=== PATIENT | male | born 1950 | race Caucasian/White ===

== ENCOUNTER → 2020-01-17 | Outpatient (CLI) | payer MEDICARE ==
[~2020-01-17] MED LIST: AMMO225L14 TP; ASPI-728 PO; ATOR40TA28 PO; DSS100 PO; HUM10VIA SQ; INSU100V SQ; LISI-662 PO; METF-960 PO; NICO1PAT49 TD; VALS80TA2 PO
== END | disposition home or self-care (01) ==
LOC: RADPV 07:30
PROVIDERS: ATTEND Internal Medicine
DX: M65.812 Other synovitis and tenosynovitis, left shoulder (principal); M25.512 Pain in left shoulder
CPT/HCPCS: 73030-TC

== ENCOUNTER → 2020-06-05 | Outpatient (CLI) | payer MEDICARE ==
[~2020-06-05] MED LIST changes: +ASPI-1450 PO; -ASPI-728 PO; -LISI-662 PO; +LISI-894 PO
== END | disposition home or self-care (01) ==
LOC: RADMN 12:30
PROVIDERS: ATTEND Internal Medicine
DX: M19.012 Primary osteoarthritis, left shoulder (principal); M75.82 Other shoulder lesions, left shoulder; M77.8 Other enthesopathies, not elsewhere classified; M25.412 Effusion, left shoulder; M65.812 Other synovitis and tenosynovitis, left shoulder; M75.22 Bicipital tendinitis, left shoulder; M25.812 Other specified joint disorders, left shoulder
CPT/HCPCS: 73221